=== PATIENT | female | born 1970 | race Caucasian/White ===

== ENCOUNTER 2020-02-25 15:59 | Observation (INO) | payer BC ==
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
[2020-02-25] MEDS ORDERED: Acetaminophen 325 MG Tab PO PRN (17:05)
[2020-02-25] MEDS ORDERED: Ondansetron 4 MG/2 ML SDV IVPUSH PRN (17:09)
[2020-02-25] MEDS ORDERED: Ketorolac 30 MG/ML SDV IVPUSH PRN (17:09)
[2020-02-25] MEDS ORDERED: Promethazine 25 MG/ML SDV IM ONE (17:09)
[2020-02-25] MEDS ORDERED: Sodium Chloride 0.9% 1,000 ML IV ONE (17:11)
[2020-02-25] MEDS ORDERED: Potassium Chloride 20 MEQ Tab.ER PO ONE ×2 (19:00→22:00)
[2020-02-25] MEDS: Ondansetron 4 MG/2 ML SDV IVPUSH SCH (19:33)
[2020-02-25] MEDS: Sodium Chloride 0.9% 10 ML Syringe FLUSH PRN ×2 (19:34→21:42)
[2020-02-25] MEDS ORDERED: Pantoprazole 40 MG Vial IVPUSH SCH (20:44)
[2020-02-25] MEDS ORDERED: Famotidine 20 MG/2 ML SDV IVPUSH SCH (20:44)
[2020-02-25] MEDS ORDERED: GI Cocktail Oral Solution 30 ML PO PRN (20:45)
[2020-02-25] MEDS: Sodium Chloride 0.9% 1,000 ML IV SCH ×2 (21:34→21:57)
[2020-02-25] MEDS: Temazepam 15 MG Cap PO PRN (21:48)
[2020-02-25] MEDS: Nicotine 21 MG/24 Hr Patch TRDERM SCH (21:59)
[2020-02-25] MEDS: Calcium Carbonate 500 MG Tab.Chew PO PRN (22:00)
[2020-02-26] MEDS ORDERED: Potassium Chloride 20 MEQ Tab.ER PO ONE ×2 (03:00→06:00)
[2020-02-26] MEDS: Temazepam 15 MG Cap PO PRN (03:17)
[2020-02-26] MEDS: Ondansetron 4 MG/2 ML SDV IVPUSH SCH ×3 (03:17→14:48)
[2020-02-26] MEDS: Calcium Carbonate 500 MG Tab.Chew PO PRN (03:17)
[2020-02-26] MEDS: Sodium Chloride 0.9% 10 ML Syringe FLUSH PRN ×2 (03:17→09:07)
[2020-02-26] MEDS: Sodium Chloride 0.9% 1,000 ML IV SCH ×2 (05:48→12:32)
[2020-02-26 07:46] LABS: CHLORIDE,CL 110 mmol/L (98-107); SODIUM,NA 143 mmol/L (136-145)
[2020-02-26] MEDS: Nicotine 21 MG/24 Hr Patch TRDERM SCH (09:06)
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
== END 2020-02-26 14:30 | disposition home or self-care (01) ==
LOC: LL.ED 15:59 → UNDOADMOB 17:02 → LL.MS 17:02
PROVIDERS: ADMIT Emergency Medicine; ATTEND Emergency Medicine
DX: K52.9 Noninfective gastroenteritis and colitis, unspecified (principal); E86.0 Dehydration; E87.6 Hypokalemia; E83.42 Hypomagnesemia; F17.210 Nicotine dependence, cigarettes, uncomplicated; Z88.0 Allergy status to penicillin
CPT/HCPCS: 36415; 80053; 81001; 83605; 83735; 85025; 87086; 87635; 99284; A9270; C9113; J1885; J2405; J2550; J3475; J3490; J7030; 99217; 99219; U0002

== ENCOUNTER 2021-05-02 04:34 | Emergency (ER) | payer BC ==
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
[2021-05-02] MEDS ORDERED: Acetaminophen/HYDROcodone 325-10 MG Tab PO PRN (05:24)
[2021-05-02] MEDS: Acetaminophen/HYDROcodone 325-5 MG Tab PO ONE (05:30)
== END 2021-05-02 05:54 | disposition home or self-care (01) ==
LOC: LL.ED 04:34
DX: S42.201A Unspecified fracture of upper end of right humerus, initial encounter for closed fracture (principal); Z88.0 Allergy status to penicillin; Z72.0 Tobacco use; W01.0XXA Fall on same level from slipping, tripping and stumbling without subsequent striking against object, initial encounter
CPT/HCPCS: 73030-RT; 99283-25; 99284; A9270-GY

== ENCOUNTER 2023-05-19 08:33 | Day surgery (SDC) | payer BC ==
[~2023-05-19 08:33] MED LIST: Midazolam 1 MG/ML 2 ML SDV ONE; Propofol 200 MG/20 ML SDV ONE
[2023-05-19] MEDS ORDERED: Lactated Ringers 1,000 ML IV SCH (08:45)
[2023-05-19] MEDS ORDERED: Sodium Chloride 0.9% 10 ML Syringe FLUSH PRN (08:45)
== END 2023-05-19 11:30 | disposition home or self-care (01) ==
LOC: LL.SDS 08:33
PROVIDERS: ATTEND Surgery
DX: Z12.11 Encounter for screening for malignant neoplasm of colon (principal); D12.2 Benign neoplasm of ascending colon; D12.0 Benign neoplasm of cecum; K57.30 Diverticulosis of large intestine without perforation or abscess without bleeding; K56.609 Unspecified intestinal obstruction, unspecified as to partial versus complete obstruction; R19.4 Change in bowel habit; E87.6 Hypokalemia; E83.42 Hypomagnesemia; Z90.710 Acquired absence of both cervix and uterus; F17.210 Nicotine dependence, cigarettes, uncomplicated; Z88.0 Allergy status to penicillin; Z79.899 Other long term (current) drug therapy
CPT/HCPCS: 00812; J2250; J2704; J7120